=== PATIENT | female | born 1955 | race Caucasian/White ===

== ENCOUNTER 2016-03-03 22:32 | Emergency (ER) | payer BC ==
[~2016-03-03] VITALS: Ht 160 cm; Wt 100.0 kg
[~2016-03-03 22:32] MED LIST: ALBU8.5H5 INH; ASPI-664 PO; ATEN50TA PO; CIPR500T4 PO; GLU5XL PO; GUAI120S26 PO; IBUP400T22 PO; LISI-325 PO; LORA-186 PO; METF-388 PO; OMEP20CA16 PO; PHEN-538 PO
[2016-03-03 22:38] VITALS: Ht 160 cm; Wt 100.0 kg
[2016-03-04 01:56] LABS: URINE BLOOD (Dip) POC 2+ (NEGATIVE)
[2016-03-04] MEDS ORDERED: CEPH-443 PO (02:19)
--- NOTE | 2016-03-04 02:24 | ERD ---
ER Documentation Chief Complaint Date/Time DATE: 03/04/16 TIME: 02:20 Chief Complaint painful urination x 4 days HPI Patient is a 6-year-old female with a past medical history of diabetes, hypertension who presents to the emergency department with painful urination 4 days. Patient's son was used as manager float throughout encounter. Patient reports burning pain with urination. Patient also reports frequency and urgency. Patient denies any malodorous urine or hematuria. Patient denies any fevers, chills, nausea, vomiting, abdominal pain. Patient does have a history of UTIs in the past. Patient states her last bowel movement was yesterday. Of note, patient was treated with fluconazole 150 mg 2 days prior by her PCP. Patient states that this medication did not help with her symptoms. ROS All systems reviewed and are negative except as per history of present illness. Medications Home Meds Active Scripts Cephalexin* (Keflex*) 500 Mg Capsule, 500 MG PO QID for 7 Days, CAP Prov:BROCK ZHU PA-C 03/04/16 Ciprofloxacin Hcl* (Ciprofloxacin Hcl*) 500 Mg Tablet, 500 MG PO BID for 10 Days , TAB Prov:DEANN MENARD NP 07/30/15 Phenazopyridine Hcl* (Pyridium*) 200 Mg Tab, 200 MG PO TID Y for URINARY PAIN, # 6 TAB Prov:DEANN MENARD NP 07/30/15 Nfminflezxy-R-Oggpcafpra Hb* (Guaifenesin* DM Syrup) 120 Ml Syrup, 10 ML PO Q4H Y for COUGH, #120 ML Prov:DEANN MENARD NP 02/12/15 Loratadine* (Claritin*) 10 Mg Tablet, 10 MG PO DAILY, #30 TAB Prov:DEANN MENARD NP 02/12/15 Albuterol Sulfate* (Albuterol Sulfate* HFA) 8.5 Gm Hfa.aer.ad, 2 PUFF INH Q4 Y for SHORTNESS OF BREATH, #1 EA Prov:DEANN MENARD NP 02/12/15 Reported Medications Metformin Hcl* (Metformin Hcl*) 1,000 Mg Tablet, 1000 MG PO BID, TAB 10/30/13 Omeprazole* (Omeprazole*) 20 Mg Capsule.dr, 20 MG PO DAILY, CAP 10/30/13 Ibuprofen* (Ibuprofen*) 400 Mg Tablet, 400 MG PO Q6H Y for PAIN, TAB 10/30/13 Atenolol* (Atenolol*) 50 Mg Tablet, 50 MG PO BID, TAB 10/30/13 Glipizide XL* (Glipizide XL*) 5 Mg Tabsr, 10 MG PO BID, TAB 10/30/13 Lisinopril-Hydrochlorothiazide (Lisinopril-HCTZ) 10-12.5 Mg Tab, 1 TAB PO BID, TAB 10/30/13 Aspirin* (Aspirin* EC) 81 Mg Tablet.dr, 81 MG PO DAILY, TAB 10/30/13 Allergies Allergies: Coded Allergies: No Known Allergy (Unverified , 02/16/14) PMhx/Soc History of Surgery: Yes (eye Cataract surgeries) Anesthesia Reaction: No Hx Neurological Disorder: No Hx Respiratory Disorders: No Hx Cardiac Disorders: Yes (hypertension) Hx Psychiatric Problems: No Hx Miscellaneous Medical Probl: Yes (diabetes) Hx Alcohol Use: Yes Hx Substance Use: No Hx Tobacco Use: Yes (occasionally) Smoking Status: Never smoker FmHx Family History: diabetes Physical Exam Vitals Vital Signs Date Time Temp Pulse Resp B/P Pulse Ox O2 Delivery O2 Flow Rate FiO2 03/04/16 02:29 98.0 75 18 134/66 100 Room Air 03/03/16 22:38 97.8 88 20 116/59 100 Physical Exam GENERAL: Well-developed, well-nourished female. Appears in no acute distress. HEAD: Normocephalic, atraumatic. EYES: Pupils are equally reactive bilaterally. EOMs grossly intact. No conjunctival erythema. ENT: Moist mucous membranes. No uvula deviation. No kissing tonsils. NECK: Supple. No lymphadenopathy or thyromegaly. No meningismus. LUNG: Clear to auscultation bilaterally. No rhonchi, wheezing, rales or coarse breath sounds. HEART: Regular rate and rhythm. No murmurs, rubs or gallops. ABDOMEN: No scars, ecchymosis or rashes noted. Soft and nondistended. Tender to palpation in suprapubic region. Positive bowel sounds in all four quadrants. No rebound tenderness, no guarding. (-) McBurneys point tenderness. No CVA tenderness. BACK: No midline tenderness. EXTREMITIES: Equal pulses bilaterally. No peripheral clubbing, cyanosis or edema. No unilateral leg swelling. NEUROLOGIC: Alert and oriented. Moving all four extremities without any difficulty. Normal speech. Steady gait. SKIN: Normal color. Warm and dry. No rashes or lesions. Results 24 hrs Laboratory Tests Test 03/04/16 01:56 Bedside Urine Blood 2+ Bedside Urine Glucose (UA) Negative Bedside Urine Ketones (LAB) Negative Bedside Urine Leukocyte Esterase (L 2+ Bedside Urine Nitrite (LAB) Positive Bedside Urine Protein (LAB) 2+ Bedside Urine pH (LAB) 6.0 Procedures/MDM MEDICAL DECISION MAKING: This is a female with past medical history of diabetes and hypertension who presents with painful urination 4 days. Vital signs were reviewed. Patient was afebrile. Urine dip showed 2+ blood, positive nitrites, 2+ leukocyte esterase. Given these findings, the patients presentation is most consistent with urinary tract infection. I have a much lower clinical concern for pyelonephritis, nephrolithiasis, appendicitis, diverticulitis, constipation, ovarian torsion, or tubo-ovarian abscess. PRESCRIPTIONS: Keflex DISCHARGE: At this time, patient is stable for discharge and outpatient management. I have instructed the patient to follow-up with his/her primary care physician in 1-2 days. Patient should repeat UA in 2 weeks to check for resolution of urinary tract infection. If symptoms persist, patient may need to see a specialist for further examinations and testing. I have instructed the patient to promptly return to the ER at any time for any new or worsening symptoms including increased pain, fever, nausea, vomiting, urinary changes or weakness. The patient and/or family expressed understanding of and agreement with this plan. All questions were answered. Home care instructions were provided. Departure Diagnosis: Primary Impression: UTI (urinary tract infection) Urinary tract infection type: site unspecified Hematuria presence: with hematuria Qualified Code: N39.0 - Urinary tract infection with hematuria, site unspecified Condition: Stable Patient Instructions: Understanding Urinary Tract Infections (UTIs) Referrals: COMM[facility]ITY [facility] YOU HAVE RECEIVED A MEDICAL SCREENING EXAM AND THE RESULTS INDICATE THAT YOU DO NOT HAVE A CONDITION THAT REQUIRES URGENT TREATMENT IN THE EMERGENCY DEPARTMENT. FURTHER EVALUATION AND TREATMENT OF YOUR CONDITION CAN WAIT UNTIL YOU ARE SEEN IN YOUR DOCTORS OFFICE WITHIN THE NEXT 1-2 DAYS. IT IS YOUR RESPONSIBILITY TO MAKE AN APPOINTMENT FOR FOLOW-UP CARE. IF YOU HAVE A PRIMARY DOCTOR --you should call your primary doctor and schedule an appointment IF YOU DO NOT HAVE A PRIMARY DOCTOR YOU CAN CALL OUR PHYSICIAN REFERRAL HOTLINE AT IF YOU CAN NOT AFFORD TO SEE A PHYSICIAN YOU CAN CHOSE FROM THE FOLLOWING [facility] [address] [facility] [address] [facility] [address] [facility] [address] [facility] [address] [facility]. [facility] [address] [facility]. [facility] YOU HAVE RECEIVED A MEDICAL SCREENING EXAM AND THE RESULTS INDICATE THAT YOU DO NOT HAVE A CONDITION THAT REQUIRES URGENT TREATMENT IN THE EMERGENCY DEPARTMENT. FURTHER EVALUATION AND TREATMENT OF YOUR CONDITION CAN WAIT UNTIL YOU ARE SEEN IN YOUR DOCTORS OFFICE WITHIN THE NEXT 1-2 DAYS. IT IS YOUR RESPONSIBILITY TO MAKE AN APPOINTMENT FOR FOLOW-UP CARE. IF YOU HAVE A PRIMARY DOCTOR --you should call your primary doctor and schedule and appointment IF YOU DO NOT HAVE A PRIMARY DOCTOR YOU CAN CALL OUR PHYSICIAN REFERRAL HOTLINE AT . IF YOU CAN NOT AFFORD TO SEE A PHYSICIAN YOU CAN CHOSE FROM THE FOLLOWING [facility]: [facility] [address] [place] [address] [facility] [address] [place] [address] [facility] [address] [place] [address] Additional Instructions: Call your primary care doctor TOMORROW for an appointment during the next 1-2 days.See the doctor sooner or return here if your condition worsens before your appointment time. Repeat urinalysis advised in 2 weeks to check for resolution of UTI. BROCK ZHU PA-C Mar 04, 2016 02:23
[2016-03-04 02:29] VITALS: BP 134/66; PULSE 75; RESP 18; TEMP 98
== END 2016-03-04 02:31 | disposition home or self-care (01) ==
LOC: FTE 22:32
DX: N39.0 Urinary tract infection, site not specified (principal); I10 Essential (primary) hypertension; E11.9 Type 2 diabetes mellitus without complications; Z79.82 Long term (current) use of aspirin; Z79.84 Long term (current) use of oral hypoglycemic drugs
CPT/HCPCS: 81003; Z7502; 99283

== ENCOUNTER 2018-08-15 22:14 | Emergency (ER) | payer BC ==
[~2018-08-15] VITALS: Ht 157.5 cm; Wt 93.2 kg
[~2018-08-15 22:14] MED LIST changes: -ASPI-664 PO; +ASPI-817 PO; +CEPH-443 PO; +GLIP-160 PO; -GLU5XL PO; +GUAI120S25 PO; -GUAI120S26 PO; +IBUP-1541 PO; -IBUP400T22 PO; -METF-388 PO; +METF100010 PO
[2018-08-15 22:17] VITALS: Ht 157.5 cm; Wt 93.2 kg
[2018-08-16] MEDS ORDERED: ONDANSETRON 4 MG INJ IV STA (01:41)
[2018-08-16] MEDS ORDERED: morphine 4 MG/ML VIAL IV STA (01:41)
[2018-08-16] MEDS ORDERED: INSU100I12 SQ (03:25)
[2018-08-16] MEDS ORDERED: INSU100I33 SQ (03:25)
[2018-08-16] MEDS ORDERED: SERT50TA6 PO (03:25)
[2018-08-16] MEDS ORDERED: EMPA10TA PO (03:25)
[2018-08-16] MEDS ORDERED: CYAN500T46 PO (03:25)
[2018-08-16] MEDS ORDERED: CHOL500010 PO (03:25)
[2018-08-16] MEDS ORDERED: IBUP-1544 PO (03:25)
[2018-08-16] MEDS ORDERED: LISI1TAB4 PO (03:25)
[2018-08-16 04:01] VITALS: BP 123/67; PULSE 76; RESP 16
--- NOTE | 2018-08-16 04:50 | ERD ---
ER Documentation Chief Complaint Chief Complaint BODY ACHES, VOMITING X'S 2 WEEKS HPI 62-year-old female with multiple medical problems presenting with complaints of body aches all over her body for the past 2 weeks. No alleviating factors. She has some chest discomfort as well as back discomfort. Her symptoms are constant. Pain is aching, 7 out of 10. She has not seen her primary care doctor. She has had occasional vomiting as well. No diarrhea, constipation, dysuria, hematuria, focal abdominal pain.No fevers or chills. ROS All systems reviewed and are negative except as per history of present illness. Medications Home Meds Reported Medications Cholecalciferol (Vitamin D3) 5,000 Unit Tablet, 5000 UNIT PO DAILY, TAB 08/16/18 Cyanocobalamin* (Vitamin B12*) 500 Mcg Tab, 500 MCG PO DAILY, TAB 08/16/18 Insulin Lispro (Humalog Kwikpen U-100) 100 Unit/1 Ml Insuln.pen, 18 UNIT SQ AC LUNCH DINNER, EA 08/16/18 Insulin Glargine,Hum.rec.anlog (Basaglar Kwikpen U-100) 100 Unit/1 Ml Insuln.pen, 18 UNIT SQ QHS for 30 Days 08/16/18 Lisinopril/Hydrochlorothiazide (Lisinopril-Hctz 10-12.5 mg Tab) 1 Each Tablet, 1 TAB PO DAILY for 30 Days, #60 08/16/18 Empagliflozin (Jardiance) 10 Mg Tablet, 10 MG PO DAILY for 30 Days, #30 08/16/18 Ibuprofen* (Ibuprofen*) 800 Mg Tablet, 800 MG PO Q6H PRN for PAIN LEVEL 1-5 08/16/18 Sertraline Hcl* (Sertraline Hcl*) 50 Mg Tablet, 50 MG PO QHS for 30 Days, #30 08/16/18 Metformin Hcl* (Metformin Hcl*) 1,000 Mg Tablet, 1000 MG PO BID, TAB 10/30/13 Omeprazole* (Omeprazole*) 20 Mg Capsule.dr, 20 MG PO DAILY, CAP 10/30/13 Ibuprofen* (Ibuprofen*) 400 Mg Tablet, 400 MG PO Q6H PRN for PAIN, TAB 10/30/13 Atenolol* (Atenolol*) 50 Mg Tablet, 50 MG PO BID, TAB 10/30/13 Glipizide XL* (Glipizide XL*) 5 Mg Tabsr, 10 MG PO BID, TAB 10/30/13 Aspirin* (Aspirin* EC) 81 Mg Tablet.dr, 81 MG PO DAILY, TAB 10/30/13 Discontinued Reported Medications Lisinopril-Hydrochlorothiazide (Lisinopril-HCTZ) 10-12.5 Mg Tab, 1 TAB PO BID, TAB 10/30/13 Discontinued Scripts Cephalexin* (Keflex*) 500 Mg Capsule, 500 MG PO QID for 7 Days, CAP Prov:BROCK ZHU PA-C 03/04/16 Ciprofloxacin Hcl* (Ciprofloxacin Hcl*) 500 Mg Tablet, 500 MG PO BID for 10 Days, TAB Prov:DEANN MENARD NP 07/30/15 Phenazopyridine Hcl* (Pyridium*) 200 Mg Tab, 200 MG PO TID PRN for URINARY PAIN, #6 TAB Prov:DEANN MENARD NP 07/30/15 Cfznjnjbbtl-H-Tobuvtjals Hb* (Guaifenesin* DM Syrup) 120 Ml Syrup, 10 ML PO Q4H PRN for COUGH, #120 ML Prov:DEANN MENARD NP 02/12/15 Loratadine* (Claritin*) 10 Mg Tablet, 10 MG PO DAILY, #30 TAB Prov:DEANN MENARD NP 02/12/15 Albuterol Sulfate* (Albuterol Sulfate* HFA) 8.5 Gm Hfa.aer.ad, 2 PUFF INH Q4 PRN for SHORTNESS OF BREATH, #1 EA Prov:DEANN MENARD NP 02/12/15 Allergies Allergies: Coded Allergies: No Known Allergy (Unverified , 08/16/18) PMhx/Soc History of Surgery: Yes (eye Cataract surgeries) Anesthesia Reaction: No Hx Neurological Disorder: No Hx Respiratory Disorders: No Hx Cardiac Disorders: Yes (hypertension) Hx Psychiatric Problems: No Hx Miscellaneous Medical Probl: Yes (diabetes) Hx Alcohol Use: Yes Hx Substance Use: No Hx Tobacco Use: Yes (occasionally) Smoking Status: Never smoker FmHx Family History: No diabetes Physical Exam Vitals Vital Signs Date Temp Pulse Resp B/P (MAP) Pulse Ox O2 O2 Flow FiO2 Time Delivery Rate 08/16/18 76 16 123/67 98 Room Air 04:01 (85) 08/15/18 99.1 99 18 129/62 95 22:17 (84) Physical Exam Const: No acute distress Head: Atraumatic Eyes: Normal Conjunctiva ENT: Normal External Ears, Nose and Mouth. Neck: Full range of motion. No meningismus. Resp: Clear to auscultation bilaterally Cardio: Regular rate and rhythm, no murmurs. 2+ distal pulses in all 4 extremities Abd: Soft, non tender, non distended. Normal bowel sounds Skin: No petechiae or rashes Back: No midline or flank tenderness Ext: No cyanosis, or edema. No deformities. No bruising. No tenderness to palpation. Neur: Awake and alert, oriented x3, no facial asymmetry, normal speech, moving all extremities Psych: Normal Mood and Affect Result Diagram: 08/16/18 0200 08/16/18 0200 Results 24 hrs Laboratory Tests Test 08/16/18 01:00 08/16/18 01:31 08/16/18 02:00 Urine Color YELLOW Urine Clarity SLIGHTLY CLOUDY Urine pH 5.0 Urine Specific [place] 1.026 Urine Ketones TRACE mg/dL Urine Nitrite NEGATIVE mg/dL Urine Bilirubin NEGATIVE mg/dL Urine Urobilinogen NEGATIVE mg/dL Urine Leukocyte Esterase 1+ Delaney/ul Urine Microscopic RBC 3 /HPF Urine Microscopic WBC 32 /HPF Urine Squamous Epithelial Cells FEW /HPF Urine Bacteria FEW /HPF Urine Hemoglobin NEGATIVE mg/dL Urine Glucose 3+ mg/dL Urine Total Protein NEGATIVE mg/dl Bedside Urine pH (LAB) 5.5 Bedside Urine Protein (LAB) 1+ Bedside Urine Glucose (UA) 0.50% Bedside Urine Ketones (LAB) 1+ Bedside Urine Blood Negative Bedside Urine Nitrite (LAB) Negative Bedside Urine Leukocyte Esterase Trace (L White Blood Count 10.2 10^3/ul Red Blood Count 4.80 10^6/ul Hemoglobin 11.9 g/dl Hematocrit 38.5 % Mean Corpuscular Volume 80.2 fl Mean Corpuscular Hemoglobin 24.8 pg Mean Corpuscular 30.9 g/dl Hemoglobin Concent Red Cell Distribution Width 15.6 % Platelet Count 262 10^3/UL Mean Platelet Volume 10.0 fl Immature Granulocytes % 0.200 % Neutrophils % 81.6 % Lymphocytes % 11.4 % Monocytes % 6.5 % Eosinophils % 0.1 % Basophils % 0.2 % Nucleated Red Blood Cells % 0.0 /100WBC Immature Granulocytes # 0.020 10^3/ul Neutrophils # 8.4 10^3/ul Lymphocytes # 1.2 10^3/ul Monocytes # 0.7 10^3/ul Eosinophils # 0.0 10^3/ul Basophils # 0.0 10^3/ul Nucleated Red Blood Cells # 0.0 10^3/ul Sodium Level 141 mmol/L Potassium Level 3.9 mmol/L Chloride Level 102 mmol/L Carbon Dioxide Level 25 mmol/L Anion Gap 14 Blood Urea Nitrogen 19 mg/dl Creatinine 0.79 mg/dl Est Glomerular Filtrat > 60 mL/min Rate mL/min Glucose Level 125 mg/dl Calcium Level 9.4 mg/dl Total Bilirubin 0.6 mg/dl Direct Bilirubin 0.00 mg/dl Indirect Bilirubin 0.6 mg/dl Aspartate Amino 18 IU/L Transf (AST/SGOT) Alanine 13 IU/L Aminotransferase (ALT/SGPT) Alkaline Phosphatase 74 IU/L Troponin I < 0.012 ng/ml Total Protein 7.6 g/dl Albumin 4.5 g/dl Globulin 3.10 g/dl Albumin/Globulin Ratio 1.45 Current Medications Medications Dose Sig/Julee Start Time Status Last (Trade) Ordered Route PRN Stop Time Admin Dose Reason Admin Morphine 4 mg ONCE STAT 08/16/18 DC 08/16/18 Sulfate IV 01:41 01:57 (morphine) 08/16/18 01:42 Ondansetron 4 mg ONCE STAT 08/16/18 DC 08/16/18 HCl (Zofran IV 01:41 01:58 Inj) 08/16/18 01:42 Procedures/MDM EMERGENT LABS AND DIAGNOSTIC STUDIES: Lab Results above were reviewed and interpreted by me. CBC: no clinically significant anemia or evidence of infection BMP: [no e/o clinically significant electrolyte abnormality severe acidosis, alkalosis, renal failure, diabetic ketoacidosis] Troponin within normal limits, not indicative of cardiac ischemia UA: Evidence of possible infection, however patient is asymptomatic infection 12-lead EKG was interpreted by Abdoulaye James MD: Normal Sinus Rhythm Normal axis Normal intervals No acute ST or T wave changes suggestive of acute ischemia or STEMI. Radiology Results as interpreted by Radiology below were reviewed by Miko James MD: Chest x-ray shows no acute abnormalities Initial Nursing notes reviewed. Previous Medical Records requested via the Electronic Health Record. EMERGENCY DEPARTMENT COURSE / MEDICAL DECISION MAKING: Patient is presenting with generalized body aches for the past 2 weeks. Here she is afebrile with unremarkable vitals. There are no findings on exam that are unremarkable. Basic labs were done including a cardiac work-up and were normal. At this time the cause of her pain is unclear. However this does not seem to be an emergent medical condition. I recommended follow-up with her primary care doctor in the next 2 days. Patient feels comfortable with discharge plan. All questions were answered. Discharged in stable condition. Patient's blood pressure was elevated (>120/80) but appears stable without evidence of hypertensive emergency or urgency. The patient was counseled about the risks of hypertension and urged to pursue outpatient monitoring and therapy within a week with their primary care physician. Departure Diagnosis: Primary Impression: Generalized body aches Condition: Stable Patient Instructions: Myalgias Additional Instructions: The cause of your symptoms is unknown at this time. All of your tests were normal today. Follow-up with your primary care doctor within the next 2 days. Call and tell the laboratory secretary that you were seen in the ER and we requested follow-up. STEPHAN JAMES MD Aug 16, 2018 04:50
== END 2018-08-16 04:03 | disposition home or self-care (01) ==
LOC: E/R 22:14
DX: R07.89 Other chest pain (principal); I10 Essential (primary) hypertension; E11.9 Type 2 diabetes mellitus without complications; R11.10 Vomiting, unspecified; Z79.4 Long term (current) use of insulin; Z79.82 Long term (current) use of aspirin
CPT/HCPCS: 36415; 71045; 80053; 81001; 81003; 84484; 85025; 87086; 93005; 96374; 96375; J2405